=== PATIENT | female | born 1975 | race African-American/Black ===

== ENCOUNTER 2018-11-09 23:01 | Emergency (ER) | payer OTHER ==
[~2018-11-09] VITALS: Ht 172.7 cm; Wt 84.1 kg
[2018-11-10 00:08] VITALS: BP 135/89
== END 2018-11-10 00:21 | disposition home or self-care (01) ==
LOC: ER 23:01
DX: Z02.89 Encounter for other administrative examinations (principal); F41.0 Panic disorder [episodic paroxysmal anxiety]
CPT/HCPCS: 99283